=== PATIENT | male | born 1945 | race Caucasian/White ===

== ENCOUNTER 2024-02-26 08:33 | Inpatient (IN) | payer MEDICARE, SELFPAY ==
[2024-02-26] VITALS (46 sets, daily range): BP systolic 99–175; BP diastolic 56–104; PULSE 75–169; RESP 26–45; TEMP 36.2–36.7; O2SAT 91–98; BMI 27.0
--- NOTE | 2024-02-26 08:42 | EKG_ITS ---
[id number] [address] Test Date: 2024-02-26 Pat Name: Bong Sam Department: Room: Gender: Male Staff Psychiatrist: JATINDER : 1945 Requested By: Order Number: [id number] Reading MD: Byron Burris Measurements Intervals [place] Rate: 146 P: MA: QRS: 15 QRSD: 82 T: -5 QT: 260 QTc: 405 Interpretive Statements Critical Test Result: High HR Atrial fibrillation with rapid ventricular response with premature ventricular or aberrantly conducted complexes Nonspecific ST abnormality Electronically Signed On 02-26-2024 18:36:41 PST by Byron Burris
--- NOTE | 2024-02-26 08:43 | DI.RAD.S_ITS ---
PROCEDURE: XR CHEST 1V INDICATIONS: Shortness of breath TECHNIQUE: One view of the chest was acquired. COMPARISON: None. FINDINGS: Surgical changes and devices: None. Lungs and pleura: Increased bronchovascular markings in bilateral hilar region are seen with bronchial wall cuffing. No focal infiltrate. No pleural effusions or pneumothorax. Mediastinum: Mediastinal contours appear normal. Heart size is enlarged. Bones and chest wall: No suspicious bony lesions. Overlying soft tissues appear unremarkable. IMPRESSION: Suggestion of reactive airway disease such as bronchitis or viral illness. No focal infiltrate, pleural effusion or pneumothorax. Dictated by: Parker Velazco M.D. on 02/26/2024 at 8:55 Approved by: Parker Velazco M.D. on 02/26/2024 at 8:58
[2024-02-26 08:56] LABS: Add Manual Diff / Slide Review NO; Basophils Absolute Auto 100 /uL (0-100); Basophils Percent Auto 0.6 % (0-2); Eosinophils Absolute Auto 300 /uL (0-450); Eosinophils Percent Auto 2.8 % (2-4); Hematocrit 43.4 % (41-53); Hemoglobin 14.5 g/dL (13.5-17.5); Lymphocytes Absolute Auto 1900 /uL (1100-4500); Lymphocytes Percent Auto 20.5 % (25-40); Mean Corpuscular HGB Conc 33.4 % (30-36); Mean Corpuscular Hemoglobin 32.5 PG (26-34); Mean Corpuscular Volume 97.5 fL (80-100); Monocytes Absolute Auto 1100 /uL (0-900); Monocytes Percent Auto 11.9 % (3-14); Neutrophils Absolute Auto 6000 /uL (1500-7000); Neutrophils Percent Auto 64.2 % (50-75); Platelet Count 249 X10^3/uL (150-400); Red Blood Cell Count 4.45 X10^6/uL (4.5-5.9); Red Cell Distribution Width 14.9 % (11.6-14.8); White Blood Cell Count 9.4 X10^3/uL (4.5-11.0)
--- NOTE | 2024-02-26 08:59 | ED_ITS ---
HPI - General Adult General Chief complaint: Shortness of Breath/Dyspnea Stated complaint: diff breathing, sob, diarrhea t-6mo Time Seen by Provider: 02/26/24 08:47 Source: patient Mode of arrival: Ambulatory History of Present Illness HPI narrative: Patient is an 79-year-old male. History of atrial fibrillation. Did not take his medications this morning. He states that overnight he got up to use the restroom and stated that it took him several minutes in order to catch his breath. This happened a couple times over the night. He has been having diarrhea for the past 6 months and gets up multiple times during the night because of this. No fevers. No chest pain. It does not feel palpitations. Denies any cough. No history of COPD/asthma. Is not on home oxygen. Has not tried anything for his symptoms prior to arrival. Related Data Allergies Allergy/AdvReac Type Severity Reaction Status Date / Time No Known Drug Allergies Allergy Verified 02/26/24 08:43 Review of Systems Review of Systems ROS Unobtainable: All systems reviewed & are unremarkable except as noted in HPI and below Patient History Social History Smoking Status: Unknown if ever smoked Smoking Status: Unknown if ever smoked Exam Initial Vital Signs Initial Vital Signs: Vital Signs Temperature 97.2 F L 02/26/24 08:37 Pulse Rate 103 H 02/26/24 08:37 Respiratory Rate 27 H 02/26/24 08:37 Blood Pressure 174/104 H 02/26/24 08:37 Pulse Oximetry 94 02/26/24 08:37 Oxygen Delivery Method Room Air 02/26/24 08:37 Const General: cooperative and No ill appearing [facility] Head: normal to inspection and normocephalic Resp Effort & Inspection: no cough, not labored, no respiratory distress and tachypneic Auscultation: clear to auscultation bilaterally, no rales, no rhonchi and no wheezes Cardio Rate: tachycardic Rhythm: abnormal rhythm Skin General: no rashes or lesions noted Neuro General: patient alert and patient awake Extrem General: No edema Course Orders Ordered: ED Orders 02/26/24 08:42 Complete Blood Count AUTO DIFF Stat Comprehensive Metabolic Panel Stat Lactate (Lactic Acid) Stat NT-proBNP (BNP-Adult 18+) Stat Prothrombin Time INR Stat Troponin I Stat 02/26/24 08:43 XR chest 1V Stat EKG-12 Lead Stat RT Consult Eval and Treat NOW 02/26/24 09:24 Covid-19 + FLU A/B + RSV - PCR Stat Diltiazem HCl 125 mg/ Sodium (Chloride) 125 mls @ 5 mls/hr IV TITRATE NELLY; Protocol Last Titration: 02/26/24 10:26 Dose: 10 mg/hr, 10 mls/hr Documented By: LUIS ANTONIO Admin: 02/26/24 10:07 Dose: 5 mg/hr, 5 mls/hr Documented By: LUIS ANTONIO Discontinued Medications Diltiazem HCl (Diltiazem 25 Mg/5 Ml Sdv) 10 mg IV NOW ONE Stop: 02/26/24 09:14 Last Admin: 02/26/24 09:23 Dose: 10 mg Documented By: LUIS ANTONIO Furosemide 60 mg/ Sodium (Chloride) 56 mls @ 112 mls/hr IV NOW ONE Stop: 02/26/24 09:10 Last Infusion: 02/26/24 10:00 Dose: Infused Documented By: LUIS ANTONIO Admin: 02/26/24 09:21 Dose: 112 mls/hr Documented By: LUIS ANTONIO Oseltamivir Phosphate (Oseltamivir 75 Mg Capsule) 75 mg PO NOW ONE Stop: 02/26/24 10:19 Last Admin: 02/26/24 10:26 Dose: 75 mg Documented By: LUIS ANTONIO Vital Signs Vital signs: Vital Signs - 8 hr 02/26/24 08:37 02/26/24 08:40 02/26/24 08:40 Temperature 97.2 F L Pulse Rate 103 H 133 H Respiratory Rate 27 H Blood Pressure 174/104 H 175/104 H Pulse Oximetry 94 93 Oxygen Delivery Method Room Air 02/26/24 09:23 02/26/24 10:07 Temperature Pulse Rate 155 H 133 H Respiratory Rate Blood Pressure 175/104 H 135/59 L Pulse Oximetry Oxygen Delivery Method Medical Decision Making Lab Data 02/26/24 08:42 02/26/24 08:42 Labs: Lab Results 02/26/24 02/26/24 Range/Units 08:42 09:24 WBC 9.4 (4.5-11.0) X10^3/uL RBC 4.45 L (4.5-5.9) X10^6/uL Hgb 14.5 (13.5-17.5) g/dL Hct 43.4 (41-53) % MCV 97.5 (80-100) fL MCH 32.5 (26-34) PG MCHC 33.4 (30-36) % RDW 14.9 H (11.6-14.8) % Plt Count 249 (150-400) X10^3/uL Neut % (Auto) 64.2 (50-75) % Lymph % (Auto) 20.5 L (25-40) % [place] % (Auto) 11.9 (3-14) % Eos % (Auto) 2.8 (2-4) % Baso % (Auto) 0.6 (0-2) % Neut # (Auto) 6000 (3361-7295) /uL Lymph # (Auto) 1900 (7324-3142) /uL [place] # (Auto) 1100 H (0-900) /uL Eos # (Auto) 300 (0-450) /uL Baso # (Auto) 100 (0-100) /uL PT 15.9 H (9.4-12.5) SECONDS INR 1.4 H (0.9-1.3) Sodium 141 (137-145) mmol/L Potassium 5.3 H (3.4-5.1) mmol/L Chloride 110 H (98-107) mmol/L Carbon Dioxide 19 L (22-32) mmol/L BUN 20 (9-20) mg/dL Creatinine 1.73 H (0.66-1.25) mg/dL Estimated GFR 39 L (>60) mL/min BUN/Creatinine Ratio 11.6 (6-22) Glucose 111 H (80-110) mg/dL Lactate 1.6 (0.7-2.1) mmol/L Calcium 9.1 (8.4-10.2) mg/dL Total Bilirubin 1.1 (0.2-1.3) mg/dL AST 64 H (17-59) IU/L ALT 33 (<50) IU/L Alkaline Phosphatase 41 (38-126) U/L Troponin I 0.016 (0.01-0.034) ng/mL NT-Pro-B Natriuret Pep 6330 H (<450) pg/mL Total Protein 8.7 H (6.3-8.2) g/dL Albumin 4.7 (3.5-5.0) g/dL Globulin 4.0 (1.7-4.1) g/dL Albumin/Globulin Ratio 1.2 (1.0-2.8) SARS-CoV-2 (PCR) Negative (Negative) Influenza A (RT-PCR) Flu a positive H (NEGATIVE) Influenza B (RT-PCR) Flu b negative (NEGATIVE) RSV (PCR) Negative (Negative) Imaging Data Chest x-ray: Radiologist's Impression: PROCEDURE: XR CHEST 1V INDICATIONS: Shortness of breath TECHNIQUE: One view of the chest was acquired. COMPARISON: None. FINDINGS: Surgical changes and devices: None. Lungs and pleura: Increased bronchovascular markings in bilateral hilar region are seen with bronchial wall cuffing. No focal infiltrate. No pleural effusions or pneumothorax. Mediastinum: Mediastinal contours appear normal. Heart size is enlarged. Bones and chest wall: No suspicious bony lesions. Overlying soft tissues appear unremarkable. IMPRESSION: Suggestion of reactive airway disease such as bronchitis or viral illness. No focal infiltrate, pleural effusion or pneumothorax. ECG Data Attestation: I personally reviewed and interpreted this ECG as follows: Interpretation: Atrial fibrillation Ventricular rate of 146 Normal axis Normal QRS Nonspecific ST T wave changes MDM Narrative Medical decision making narrative: Patient arrived AFib with RVR. He was has no chest pain. Had shortness of breath last evening. No fevers. His BNP is elevated. He was not taking his tamsulosin in the past 7-10 days. He was given Lasix here in the ER. He did diurese approximately 1 L. was started on diltiazem. His blood pressure and heart rate did improve. He states he takes Eliquis although I am unsure as to how compliant he was with his medications. He was also influenza A positive. Was given Tamiflu. Given his AFib, shortness of breath, fluid overload I do feel that he would benefit from admission to the hospital. Discussed the case with Dr. Burris hospitalist on-call who will admit. Discussed the need for admission with the patient who expressed understanding agreement as well. Discharge Plan Departure Patient Disposition: Admitted As Inpatient Clinical Impression: Atrial fibrillation with RVR, Influenza A, Congestive heart failure
--- NOTE | 2024-02-26 09:01 | PC.NURSE ---
Pt reports daughter has been sick and pt reports he now has what his daughter has. Pt reports taking cold medicine for 1-2 weeks. Reports he felt worse the past x4 days. States when he was walking to the bathroom when he became short of breath last night. States the SOB has been going on since then. Wheezing heard in upper lobes?. Respiratory consulted. Fine crackles heard in lower lobes
[2024-02-26 09:07] LABS: Alanine Aminotransferase 33 IU/L (<50); Albumin 4.7 g/dL (3.5-5.0); Albumin Globulin Ratio 1.2 (1.0-2.8); Alkaline Phosphatase 41 U/L (38-126); Aspartate Aminotransferase 64 IU/L (17-59); BUN Creatinine Ratio 11.6 (6-22); Bilirubin Total 1.1 mg/dL (0.2-1.3); Blood Urea Nitrogen 20 mg/dL (9-20); Calcium 9.1 mg/dL (8.4-10.2); Carbon Dioxide 19 mmol/L (22-32); Chloride 110 mmol/L (98-107); Estimated Glomerular Filt Rate 39 mL/min (>60); Glucose 111 mg/dL (80-110); HEMOLYSIS 185 (0-50); Lactate (Lactic Acid) 1.6 mmol/L (0.7-2.1); Sodium 141 mmol/L (137-145); Total Protein 8.7 g/dL (6.3-8.2)
[2024-02-26 09:08] LABS: Potassium 5.3 mmol/L (3.4-5.1)
[2024-02-26 09:10] LABS: INR 1.4 (0.9-1.3); Prothrombin Time 15.9 SECONDS (9.4-12.5)
[2024-02-26 09:19] LABS: NT-proBNP (BNP-Adult 18+) 6330 pg/mL (<450); Troponin I 0.016 ng/mL (0.01-0.034)
[2024-02-26] MEDS: FUROSEMIDE 60 MG in SODIUM CHLORIDE 0.9% 50 ML 112 MG IV (09:21)
[2024-02-26] MEDS: dilTIAZem 25 MG/5 ML SDV 10 MG IV (09:23)
[2024-02-26] MEDS: dilTIAZem 125 MG in SODIUM CHLORIDE 0.9% 100 ML IV ×2 (10:07→22:53)
[2024-02-26 10:11] LABS: COVID-19 CEPHEID 4-PLEX PCR Negative (Negative); Influenza A - CEPHEID Flu A POSITIVE (NEGATIVE); Influenza B - CEPHEID Flu B NEGATIVE (NEGATIVE); Respiratory Syncytial Virus Negative (Negative)
[2024-02-26] MEDS: OSELTAMIVIR 75 MG CAPSULE PO ×2 (10:26→20:58)
--- NOTE | 2024-02-26 10:48 | PM.HP.1 ---
History of Present Illness History of Present Illness Date Patient Seen: 02/26/24 Time Patient Seen: 12:16 Chief complaint: diff breathing, sob, diarrhea t-6mo Narrative: Patient was visiting from [facility]. He was been ill for 2 weeks. Two weeks ago he developed an upper respiratory illness with fevers, and a cough. His symptoms improved and he had had some degree of malaise for the past 10 days. He developed profound weakness and fatigue over the last 2 days. No fevers, chills. He also denies ongoing cough, or dyspnea. No rhinorrhea. He was chronic atrial fibrillation and takes carvedilol for rate control as well as apixaban. He also has prostate cancer with an elevated PSA and is deciding what he will do about this. Stopped toe taking Flomax about 2 weeks ago because of frequent urination. He denies retention symptoms. He was no history of heart failure but does take a diuretic. In the ED he was found to be dyspneic but not hypoxemic and was given Lasix IV. His influenza PCR was positive and he was given Tamiflu as well. He was in atrial fibrillation with rapid response and a diltiazem bolus and drip were started. He would limited chest pressure this morning but denies this is being a feature over the last several weeks. He was no known history of CAD. He was in town visiting his daughter. He was a nonsmoker, lifelong. He drinks about 1-5 beverages a week. [facility] Social History household members: family Smoking Status: Unknown if ever smoked Meds Home Medications and Allergies Home Medications Medication Instructions Recorded Confirmed Type Eliquis 5 mg PO DAILY 02/26/24 02/26/24 History allopurinol 100 mg PO DAILY 02/26/24 02/26/24 History carvedilol 12.5 mg tablet 12.5 mg PO DAILY 02/26/24 02/26/24 History ondansetron 8 mg disintegrating 8 mg PO Q12H PRN Nausea And 02/26/24 02/26/24 History tablet Vomiting torsemide 10 mg tablet 10 mg PO DAILY 02/26/24 02/26/24 History Allergies Allergy/AdvReac Type Severity Reaction Status Date / Time No Known Drug Allergies Allergy Verified 02/26/24 08:43 Review of Systems Review of Systems Narrative: All else reviewed and otherwise unremarkable except as noted in the history and physical. Exam Vital Signs (past 8 hours): - 02/26/24 08:37 02/26/24 08:40 02/26/24 08:40 Temperature 97.2 F L Pulse Rate 103 H 133 H Respiratory Rate 27 H Blood Pressure 174/104 H 175/104 H Pulse Oximetry 94 93 Oxygen Delivery Method Room Air 02/26/24 09:11 02/26/24 09:23 02/26/24 09:28 Temperature Pulse Rate 169 H 155 H Respiratory Rate Blood Pressure 175/104 H 147/88 H Pulse Oximetry 95 Oxygen Delivery Method 02/26/24 09:28 02/26/24 09:30 02/26/24 09:30 Temperature Pulse Rate 130 H 112 H Respiratory Rate 37 H Blood Pressure 128/69 Pulse Oximetry 92 91 Oxygen Delivery Method 02/26/24 09:40 02/26/24 09:40 02/26/24 09:50 Temperature Pulse Rate 116 H 130 H Respiratory Rate 36 H 36 H Blood Pressure 136/71 Pulse Oximetry 91 94 Oxygen Delivery Method 02/26/24 09:50 02/26/24 10:00 02/26/24 10:01 Temperature Pulse Rate 154 H 147 H Respiratory Rate 39 H 35 H Blood Pressure 154/77 H Pulse Oximetry 92 Oxygen Delivery Method 02/26/24 10:01 02/26/24 10:07 02/26/24 10:10 Temperature Pulse Rate 133 H 121 H Respiratory Rate 39 H Blood Pressure 135/59 L 135/59 L Pulse Oximetry 92 Oxygen Delivery Method 02/26/24 10:10 02/26/24 10:15 02/26/24 10:15 Temperature Pulse Rate 133 H Respiratory Rate 37 H Blood Pressure 141/71 H 155/68 H Pulse Oximetry 93 Oxygen Delivery Method 02/26/24 10:21 02/26/24 10:21 02/26/24 10:25 Temperature Pulse Rate 151 H Respiratory Rate 40 H Blood Pressure 139/61 129/69 Pulse Oximetry 93 Oxygen Delivery Method 02/26/24 10:25 02/26/24 10:30 02/26/24 10:30 Temperature Pulse Rate 128 H 124 H Respiratory Rate 36 H 34 H Blood Pressure 130/72 Pulse Oximetry 95 95 Oxygen Delivery Method 02/26/24 10:35 02/26/24 10:35 Temperature Pulse Rate 142 H Respiratory Rate 30 H Blood Pressure 124/76 Pulse Oximetry 95 Oxygen Delivery Method Oxygen Delivery Method Room Air Narrative Exam Narrative: NAD, alert and oriented, fluent speech, calm. Normocephalic skull, EOMI, anicteric sclera, symmetric pupils. Oropharynx unremarkable, no droop. Neck supple, midline trachea, no adenopathy. Lungs are globally diminished with some expiratory wheezing in scattered areas, normal rate and effort. Heart irregular, no murmur gallop or rub. He was tachycardic. Abdomen is soft, non distended and non tender. Extremities are free of edema. Skin is free of rash or lesions. Joints are not swollen or deformed. Judgment appears to be normal. Objective Imaging Chest x-ray: Radiologist's impression: [address] [address] XRay Report Signed Patient: Bong Sam MR#: [id number] : 1945 Acct:[id number] Age/Sex: 79 / M Date of Service: 02/26/24 Loc: ED Accession Number: [id number] Procedure: XR chest 1V Ordering Provider: Jelani Blanco D.O. PROCEDURE: XR CHEST 1V INDICATIONS: Shortness of breath TECHNIQUE: One view of the chest was acquired. COMPARISON: None. FINDINGS: Surgical changes and devices: None. Lungs and pleura: Increased bronchovascular markings in bilateral hilar region are seen with bronchial wall cuffing. No focal infiltrate. No pleural effusions or pneumothorax. Mediastinum: Mediastinal contours appear normal. Heart size is enlarged. Bones and chest wall: No suspicious bony lesions. Overlying soft tissues appear unremarkable. IMPRESSION: Suggestion of reactive airway disease such as bronchitis or viral illness. No focal infiltrate, pleural effusion or pneumothorax. Labs 02/26/24 08:42 02/26/24 08:42 Labs: Laboratory Results - last 24 hr 02/26/24 02/26/24 08:42 09:24 WBC 9.4 RBC 4.45 L Hgb 14.5 Hct 43.4 MCV 97.5 MCH 32.5 MCHC 33.4 RDW 14.9 H Plt Count 249 Neut % (Auto) 64.2 Lymph % (Auto) 20.5 L [place] % (Auto) 11.9 Eos % (Auto) 2.8 Baso % (Auto) 0.6 Neut # (Auto) 6000 Lymph # (Auto) 1900 [place] # (Auto) 1100 H Eos # (Auto) 300 Baso # (Auto) 100 PT 15.9 H INR 1.4 H Sodium 141 Potassium 5.3 H Chloride 110 H Carbon Dioxide 19 L BUN 20 Creatinine 1.73 H Estimated GFR 39 L BUN/Creatinine Ratio 11.6 Glucose 111 H Lactate 1.6 Calcium 9.1 Total Bilirubin 1.1 AST 64 H ALT 33 Alkaline Phosphatase 41 Troponin I 0.016 NT-Pro-B Natriuret Pep 6330 H Total Protein 8.7 H Albumin 4.7 Globulin 4.0 Albumin/Globulin Ratio 1.2 SARS-CoV-2 (PCR) Negative Influenza A (RT-PCR) Flu a positive H Influenza B (RT-PCR) Flu b negative RSV (PCR) Negative Assessment & Plan Assessment & Plan narrative: 1. Influenza, present on admission and active. 2. Dyspnea, likely related to influenza and possible acute diastolic heart failure, present on admission and active. 3. Probable acute diastolic heart failure, present on admission and active. 4. Atrial fibrillation with rapid response and history of chronic persistent atrial fibrillation. Present on admission and active. 5. BPH with recent stopping of Flomax. Present on admission and active. 6. Prostate cancer with no therapy to date. Present on admission and active. Plan: Diltiazem drip for rate control, restart carvedilol. Restart apixaban Continue Tamiflu b.i.d. for 5 days Influenza precautions Was given 1 dose of Lasix, we will monitor his response. Echo tomorrow, February 26. Full resuscitation, confirmed time of admit admission. Proxy decision maker is daughter. HAROON is February 26. Time-Based Coding :: 35 min spent with patient and on the chart (including review of chart, obtaining history, exam, reviewing outside data, placing orders, documenting exam and treatment plan, and counseling patient) on 02/25. Quality MIPS - Admit I confirm the patient?s Advance Care Plan is present, Code status is documented, Surrogate decision maker is in patient?s record [If Yes, STOP here]: Yes MIPS - Meds 'Current medications' to include all prescriptions, [id number] products, herbals, cannabis/cannabidiol products, and vitamin/mineral/dietary (nutritional) supplements. I have utilized all available resources to obtain, update, or review the patient?s current medications. [If Yes, STOP here]: Yes
[2024-02-26 11:32] LABS: Troponin I 0.058 ng/mL (0.01-0.034)
[2024-02-26] MEDS: ACETAMINOPHEN 325 MG TABLET 650 MG PO (11:58)
[2024-02-26 12:44] LABS: MRSA (Nasal) PCR NOT DETECTED (Not Detect)
--- NOTE | 2024-02-26 18:48 | PC.NURSE ---
rec'd pt from ED at 1050 w/ daughter at bedside; pt on droplet precautions for influenza A; he is on diltiazem at 10mg/hr and is a-fib 130s; increased to 15mg/hr; currently HR 80s and diltiazem was decreased and is now currently at 5mg/hr; he was given tylenol earlier for c/o headache and is now pain free; pt is ambulatory in the room and his HR is now remaining under 100bpm with movement
--- NOTE | 2024-02-26 19:38 | PC.NURSE ---
Patient Troponin 0.144, BP 116/71, HR 75, Respiration 20, SpO2 98% on room air, 12 lead EKG showing controlled A-fib at 74 BPM, denies c/o chest pain, SOB. Hospitalist quality compliance consultant updated.
[2024-02-26 19:39] LABS: Troponin I 0.144 ng/mL (0.01-0.034)
--- NOTE | 2024-02-26 19:56 | EKG_ITS ---
[address] [address] [address], [place] [address] Test Date: 2024-02-26 Pat Name: Bong Sam Department: Room: 228 Gender: Male Emission Specialist: ADAMS : 1945 Requested By: Order Number: [id number] Reading MD: Byron Burris Measurements Intervals [place] Rate: 74 P: SD: QRS: 10 QRSD: 92 T: 24 QT: 418 QTc: 463 Interpretive Statements Atrial fibrillation Electronically Signed On 02-27-2024 8:17:52 PST by Byron Burris
[2024-02-26] MEDS: APIXABAN 5 MG TABLET 2.5 MG PO (20:58)
[2024-02-27] VITALS (11 sets, daily range): BP systolic 121–153; BP diastolic 71–90; PULSE 82–104; RESP 15–20; TEMP 36.8
[2024-02-27 06:03] LABS: Add Manual Diff / Slide Review NO; Basophils Absolute Auto 0 /uL (0-100); Basophils Percent Auto 0.6 % (0-2); Eosinophils Absolute Auto 100 /uL (0-450); Eosinophils Percent Auto 1.6 % (2-4); Hematocrit 41.5 % (41-53); Hemoglobin 13.7 g/dL (13.5-17.5); Lymphocytes Absolute Auto 2000 /uL (1100-4500); Lymphocytes Percent Auto 30.9 % (25-40); Mean Corpuscular Hemoglobin 32.1 PG (26-34); Mean Corpuscular Volume 97.1 fL (80-100); Monocytes Absolute Auto 1100 /uL (0-900); Monocytes Percent Auto 16.7 % (3-14); Neutrophils Absolute Auto 3200 /uL (1500-7000); Neutrophils Percent Auto 50.2 % (50-75); Platelet Count 197 X10^3/uL (150-400); Red Blood Cell Count 4.28 X10^6/uL (4.5-5.9); Red Cell Distribution Width 14.7 % (11.6-14.8); White Blood Cell Count 6.4 X10^3/uL (4.5-11.0)
[2024-02-27 06:19] LABS: Blood Urea Nitrogen 24 mg/dL (9-20); Calcium 8.7 mg/dL (8.4-10.2); Carbon Dioxide 20 mmol/L (22-32); Chloride 108 mmol/L (98-107); Estimated Glomerular Filt Rate 43 mL/min (>60); Glucose 81 mg/dL (80-110); HEMOLYSIS < 15 (0-50); Potassium 3.2 mmol/L (3.4-5.1); Sodium 140 mmol/L (137-145)
[2024-02-27 07:03] LABS: Troponin I 0.081 ng/mL (0.01-0.034)
--- NOTE | 2024-02-27 07:56 | PM.PN.1 ---
Subjective Subjective Interval history: Summary: Patient was visiting from [facility]. He was been ill for 2 weeks. Two weeks ago he developed an upper respiratory illness with fevers, and a cough. His symptoms improved and he had had some degree of malaise for the past 10 days. He developed profound weakness and fatigue over the last 2 days. No fevers, chills. He also denies ongoing cough, or dyspnea. No rhinorrhea. He was chronic atrial fibrillation and takes carvedilol for rate control as well as apixaban. He also has prostate cancer with an elevated PSA and is deciding what he will do about this. Stopped toe taking Flomax about 2 weeks ago because of frequent urination. He denies retention symptoms. He was no history of heart failure but does take a diuretic. In the ED he was found to be dyspneic but not hypoxemic and was given Lasix IV. His influenza PCR was positive and he was given Tamiflu as well. He was in atrial fibrillation with rapid response and a diltiazem bolus and drip were started. He would limited chest pressure this morning but denies this is being a feature over the last several weeks. He was no known history of CAD. He was in town visiting his daughter. He was a nonsmoker, lifelong. He drinks about 1-5 beverages a week. S: Exam Vital Signs (past 8 hours): - 02/27/24 00:00 02/27/24 01:00 02/27/24 02:00 Temperature Pulse Rate 83 87 Respiratory Rate Blood Pressure 121/74 125/83 146/80 H 02/27/24 03:00 02/27/24 04:00 02/27/24 05:00 Temperature Pulse Rate 83 Respiratory Rate 15 Blood Pressure 139/71 145/87 H 132/80 02/27/24 05:00 02/27/24 06:00 02/27/24 06:00 Temperature 98.2 F Pulse Rate 82 Respiratory Rate 20 Blood Pressure 141/90 H 02/27/24 07:00 Temperature Pulse Rate Respiratory Rate Blood Pressure 144/88 H Oxygen Delivery Method Room Air Oxygen Flow Rate 0 Narrative Exam Narrative: NAD, alert and oriented. Fluent speech. Lungs are clear, normal rate and effort. Heart is regular, no murmur gallop or rub. Abdomen is soft, non distended. Extremities are free of edema. Objective Labs 02/27/24 05:10 02/27/24 05:10 Labs: Laboratory Results - last 24 hr 02/26/24 02/26/24 02/26/24 08:42 09:24 11:05 WBC 9.4 RBC 4.45 L Hgb 14.5 Hct 43.4 MCV 97.5 MCH 32.5 MCHC 33.4 RDW 14.9 H Plt Count 249 Neut % (Auto) 64.2 Lymph % (Auto) 20.5 L [place] % (Auto) 11.9 Eos % (Auto) 2.8 Baso % (Auto) 0.6 Neut # (Auto) 6000 Lymph # (Auto) 1900 [place] # (Auto) 1100 H Eos # (Auto) 300 Baso # (Auto) 100 PT 15.9 H INR 1.4 H Sodium 141 Potassium 5.3 H Chloride 110 H Carbon Dioxide 19 L BUN 20 Creatinine 1.73 H Estimated GFR 39 L BUN/Creatinine Ratio 11.6 Glucose 111 H Lactate 1.6 Calcium 9.1 Total Bilirubin 1.1 AST 64 H ALT 33 Alkaline Phosphatase 41 Troponin I 0.016 0.058 H NT-Pro-B Natriuret Pep 6330 H Total Protein 8.7 H Albumin 4.7 Globulin 4.0 Albumin/Globulin Ratio 1.2 Nasal Screen MRSA (PCR) SARS-CoV-2 (PCR) Negative Influenza A (RT-PCR) Flu a positive H Influenza B (RT-PCR) Flu b negative RSV (PCR) Negative 02/26/24 02/26/24 02/27/24 11:10 19:00 05:10 WBC 6.4 RBC 4.28 L Hgb 13.7 Hct 41.5 MCV 97.1 MCH 32.1 MCHC 33.0 RDW 14.7 Plt Count 197 Neut % (Auto) 50.2 Lymph % (Auto) 30.9 [place] % (Auto) 16.7 H Eos % (Auto) 1.6 L Baso % (Auto) 0.6 Neut # (Auto) 3200 Lymph # (Auto) 2000 [place] # (Auto) 1100 H Eos # (Auto) 100 Baso # (Auto) 0 PT INR Sodium 140 Potassium 3.2 L D Chloride 108 H Carbon Dioxide 20 L BUN 24 H Creatinine 1.60 H Estimated GFR 43 L BUN/Creatinine Ratio 15.0 Glucose 81 Lactate Calcium 8.7 Total Bilirubin AST ALT Alkaline Phosphatase Troponin I 0.144 H* 0.081 H NT-Pro-B Natriuret Pep Total Protein Albumin Globulin Albumin/Globulin Ratio Nasal Screen MRSA (PCR) Not detected SARS-CoV-2 (PCR) Influenza A (RT-PCR) Influenza B (RT-PCR) RSV (PCR) [facility] Social History household members: family Smoking Status: Unknown if ever smoked Assessment & Plan Assessment & Plan narrative: 1. Influenza, present on admission and active. 2. Dyspnea, likely related to influenza and possible acute diastolic heart failure, present on admission and active. 3. Probable acute diastolic heart failure, present on admission and active. 4. Atrial fibrillation with rapid response and history of chronic persistent atrial fibrillation. Present on admission and active. 5. BPH with recent stopping of Flomax. Present on admission and active. 6. Prostate cancer with no therapy to date. Present on admission and active. Plan: Diltiazem drip for rate control, restart carvedilol. Restart apixaban Continue Tamiflu b.i.d. for 5 days Influenza precautions Was given 1 dose of Lasix, we will monitor his response. Echo tomorrow, February 26. Full resuscitation, confirmed time of admit admission. Proxy decision maker is daughter. HAROON is February 26. Time-Based Coding :: [TOTAL MINUTES] spent with patient and on the chart (including review of chart, obtaining history, exam, reviewing outside data, placing orders, documenting exam and treatment plan, and counseling patient) on [DATE].
[2024-02-27] MEDS: carvediloL 12.5 MG TABLET PO (08:30)
[2024-02-27] MEDS: POTASSIUM CHLORIDE 20 MEQ TAB 40 MEQ PO (08:30)
[2024-02-27] MEDS: OSELTAMIVIR 75 MG CAPSULE PO (08:30)
[2024-02-27] MEDS: allopurinoL 100 MG TABLET PO (08:30)
[2024-02-27] MEDS: APIXABAN 5 MG TABLET 2.5 MG PO (08:31)
--- NOTE | 2024-02-27 11:17 | PM.DS.1 ---
History of Present Illness History of Present Illness Chief complaint: diff breathing, sob, diarrhea t-6mo Narrative: Patient was visiting from [facility]. He was been ill for 2 weeks. Two weeks ago he developed an upper respiratory illness with fevers, and a cough. His symptoms improved and he had had some degree of malaise for the past 10 days. He developed profound weakness and fatigue over the last 2 days. No fevers, chills. He also denies ongoing cough, or dyspnea. No rhinorrhea. He was chronic atrial fibrillation and takes carvedilol for rate control as well as apixaban. He also has prostate cancer with an elevated PSA and is deciding what he will do about this. Stopped toe taking Flomax about 2 weeks ago because of frequent urination. He denies retention symptoms. He was no history of heart failure but does take a diuretic. In the ED he was found to be dyspneic but not hypoxemic and was given Lasix IV. His influenza PCR was positive and he was given Tamiflu as well. He was in atrial fibrillation with rapid response and a diltiazem bolus and drip were started. He would limited chest pressure this morning but denies this is being a feature over the last several weeks. He was no known history of CAD. He was in town visiting his daughter. He was a nonsmoker, lifelong. He drinks about 1-5 beverages a week. Discharge Providers Provider Date of admission: 02/26/24 10:35 Discharge Date: 02/27/24 Consults: None. Discharge provider: Byron Burris MD Summary Hospital Course Discharge Diagnosis: 1. Influenza, present on admission and improved. 2. Dyspnea, likely related to influenza and possible acute diastolic heart failure, present on admission and improved. 3. Probable acute diastolic heart failure, present on admission and improve. 4. Atrial fibrillation with rapid response and history of chronic persistent atrial fibrillation. Present on admission and improved. 5. BPH with recent stopping of Flomax. Present on admission and active. 6. Prostate cancer with no therapy to date. Present on admission and active. Hospital Course: Patient was admitted with influenza as well as dyspnea and AFib with RVR. He was chronic AFib and is on anticoagulation and Coreg 12.5 b.i.d.. He was rate controlled with diltiazem and started on Tamiflu. He was not hypoxemic. He improved overnight was able to wean off from the diltiazem without difficulty after his Coreg was restarted. On the day of discharge he felt closer to baseline, still had some nasal congestion, minimal cough. He requested discharge home. 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 Status at Discharge Cognitive/behavioral status at discharge: oriented Functional status at discharge: independent ambulation Overall status at discharge: patient is back to baseline Time Spent with Patient Time spent: Greater than 30 minutes Exam Vital Signs (past 8 hours): - 02/27/24 04:00 02/27/24 05:00 02/27/24 05:00 Temperature 98.2 F Pulse Rate 83 Respiratory Rate 15 20 Blood Pressure 145/87 H 132/80 Oxygen Delivery Method 02/27/24 06:00 02/27/24 06:00 02/27/24 07:00 Temperature Pulse Rate 82 Respiratory Rate Blood Pressure 141/90 H 144/88 H Oxygen Delivery Method 02/27/24 07:00 02/27/24 08:00 02/27/24 08:00 Temperature 98.2 F Pulse Rate Respiratory Rate Blood Pressure 153/74 H Oxygen Delivery Method Room Air 02/27/24 09:00 02/27/24 09:00 02/27/24 10:01 Temperature Pulse Rate 104 H Respiratory Rate 18 Blood Pressure 139/71 Oxygen Delivery Method Oxygen Delivery Method Room Air Oxygen Flow Rate 0 Narrative Exam Narrative: NAD, alert and oriented. Fluent speech. Lungs are clear, normal rate and effort. Heart is regular, no murmur gallop or rub. Abdomen is soft, non distended. Extremities are free of edema. Objective Labs 02/27/24 05:10 02/27/24 05:10 Labs: Laboratory Results - last 24 hr 02/26/24 02/26/24 02/26/24 11:05 11:10 19:00 WBC RBC Hgb Hct MCV MCH MCHC RDW Plt Count Neut % (Auto) Lymph % (Auto) [place] % (Auto) Eos % (Auto) Baso % (Auto) Neut # (Auto) Lymph # (Auto) [place] # (Auto) Eos # (Auto) Baso # (Auto) Sodium Potassium Chloride Carbon Dioxide BUN Creatinine Estimated GFR BUN/Creatinine Ratio Glucose Calcium Troponin I 0.058 H 0.144 H* Nasal Screen MRSA (PCR) Not detected 02/27/24 05:10 WBC 6.4 RBC 4.28 L Hgb 13.7 Hct 41.5 MCV 97.1 MCH 32.1 MCHC 33.0 RDW 14.7 Plt Count 197 Neut % (Auto) 50.2 Lymph % (Auto) 30.9 [place] % (Auto) 16.7 H Eos % (Auto) 1.6 L Baso % (Auto) 0.6 Neut # (Auto) 3200 Lymph # (Auto) 2000 [place] # (Auto) 1100 H Eos # (Auto) 100 Baso # (Auto) 0 Sodium 140 Potassium 3.2 L D Chloride 108 H Carbon Dioxide 20 L BUN 24 H Creatinine 1.60 H Estimated GFR 43 L BUN/Creatinine Ratio 15.0 Glucose 81 Calcium 8.7 Troponin I 0.081 H Nasal Screen MRSA (PCR) [facility] Social History household members: family Smoking Status: Unknown if ever smoked Discharge Assessment & Plan Assessment and Plan Assessment: 1. Influenza, present on admission and improved. 2. Dyspnea, likely related to influenza and possible acute diastolic heart failure, present on admission and improved. 3. Probable acute diastolic heart failure, present on admission and improve. 4. Atrial fibrillation with rapid response and history of chronic persistent atrial fibrillation. Present on admission and improved. 5. BPH with recent stopping of Flomax. Present on admission and active. 6. Prostate cancer with no therapy to date. Present on admission and active. Plan of Treatment: Discharge home, complete Tamiflu 5 day course. Continue usual chronic medications. Follow up with the urgent care Discharge Plan Discharge Plan Patient Disposition: Home Provider Discharge Comment: Improved, stable for discharge home. Discharge orders & Medications Prescriptions: New oseltamivir [Tamiflu] 75 mg capsule 75 mg PO BID 4 Days Qty: 8 0RF Continued carvedilol 12.5 mg Tablet 12.5 mg PO DAILY torsemide 10 mg Tablet 10 mg PO DAILY ondansetron 8 mg Tablet,Disintegrating 8 mg PO Q12H PRN (Reason: Nausea And Vomiting) allopurinol 100 mg tablet 100 mg PO DAILY apixaban 5 mg tablet 5 mg PO DAILY Diet/Activity/Treatments Diet: Diet as Tolerated Skin/Wound/Dressing Care Report to your healthcare provider any signs of infection, such as:: chills, fever Visit Report/Discharge Packet Instructions: DI for H1N1 Influenza -- Adult Stand Alone Forms: Patient Portal/API
== END 2024-02-27 14:25 | disposition home or self-care (01) | DRG 308 ==
LOC: ED 10:21 → AC 10:38 → ICU 10:40
PROVIDERS: Internal Medicine; Admitting Provider Hospitalist; Emergency Provider Emergency Medicine; Referring Provider Emergency Medicine; Visit Provider Hospitalist
DX: I48.19 Other persistent atrial fibrillation (principal); I50.31 Acute diastolic (congestive) heart failure; J10.1 Influenza due to other identified influenza virus with other respiratory manifestations; C61 Malignant neoplasm of prostate; N40.1 Benign prostatic hyperplasia with lower urinary tract symptoms; R35.0 Frequency of micturition; Z79.01 Long term (current) use of anticoagulants
CPT/HCPCS: 0241U; 36415; 71045; 80048; 80053; 83605; 83880; 84484; 85025; 85610; 87797; 93005; 96365; 96367; 96376; 99284; J1940

== ENCOUNTER → 2024-06-21 13:17 | Outpatient (CLI) | payer MEDICARE, SELFPAY ==
[2024-02-26 10:40] VITALS: BMI 27.0
[2024-06-21 14:01] LABS: BUN Creatinine Ratio 15.2 (6-22); Blood Urea Nitrogen 26 mg/dL (9-20); Calcium 9.6 mg/dL (8.4-10.2); Carbon Dioxide 23 mmol/L (22-32); Chloride 107 mmol/L (98-107); Estimated Glomerular Filt Rate 40 mL/min (>60); Glucose 124 mg/dL (70-99); HEMOLYSIS < 15 (0-50); Sodium 140 mmol/L (137-145)
[2024-06-21 14:31] LABS: Prostate Specific Antigen 15.8 ng/mL (0.10-4.00)
== END ==
PROVIDERS: Referring Provider Urology; Visit Provider Urology
DX: C61 Malignant neoplasm of prostate (principal)
CPT/HCPCS: 36415; 80048; 84153

== ENCOUNTER → 2024-07-05 09:12 | Outpatient (CLI) | payer MEDICARE, SELFPAY ==
[2024-02-26 10:40] VITALS: BMI 27.0
--- NOTE | 2024-07-05 10:00 | DI.MRI.S_ITS ---
PROCEDURE: MR PELVIC PROSTATE PROTOCOL INDICATIONS: 79 y/o M w/ prostate cancer, please eval. TECHNIQUE: Coronal HASTE, axial T1 FSE with fat saturation, 3-plane nonbreath-hold T2 FSE. After the administration of contrast, dynamic axial, delayed axial and coronal VIBE or 2-D FLASH with fat saturation through the pelvis. Diffusion weighted imaging and ADC was performed. COMPARISON: None. FINDINGS: Image quality: Diffusion weighted and dynamic contrast enhanced images are diagnostic. Prostate: Gland size is 5.6 x 4.9 x 6.1 cm; ellipsoid gland volume is 87 mL. Transitional zone heterogenous nodules are present, either well encapsulated or mostly encapsulated, compatible with PI-RADS 1 or 2 likely BPH nodules. This is the predominant abnormality. Right mid gland peripheral zone 0.6 cm lesion is seen (4/20). DWI score 3. DCE positive. T2 score 3. PI-RADS 4. Right apex anterior transitional zone lesion measures 1.3 x 1.2 x 1.2 cm. T2 score 3. DWI score 4. (25/20) DCE positive. PI-RADS 3. Seminal vesicles are clear. No definite extracapsular disease. Genitourinary system: Trabeculated bladder is usually from chronic obstruction Bowel and peritoneum: No pathologic ascites. No bowel obstruction. Colonic diverticula are seen Nodes and vessels: No aneurysmal artery identified. No pathologic lymph nodes by size criteria. Soft tissues: Small fat containing left inguinal hernia. Bones: No aggressive appearing osseous abnormality. IMPRESSION: PI-RADS 3 and 4 lesions in the right prostate as described above. No definite extracapsular measurable disease or seminal vesicle involvement. The predominant abnormality in the prostate is BPH and overall prostatomegaly. No pelvic lymphadenopathy by size criteria. No aggressive osseous abnormality. Dictated by: Rell Gardner M.D. on 07/05/2024 at 11:42 Approved by: Rell Gardner M.D. on 07/05/2024 at 11:48
== END ==
LOC: MRI 09:14
PROVIDERS: Referring Provider Urology; Visit Provider Urology
DX: C61 Malignant neoplasm of prostate (principal); K40.90 Unilateral inguinal hernia, without obstruction or gangrene, not specified as recurrent; N40.0 Benign prostatic hyperplasia without lower urinary tract symptoms
CPT/HCPCS: 72197; A9579

== ENCOUNTER → 2024-07-30 12:15 | Outpatient (CLI) | payer MEDICARE, SELFPAY ==
[2024-02-26 10:40] VITALS: BMI 27.0
[2024-07-30 13:49] LABS: Clostridium Difficile Tox PCR Negative for C. diff (Negative)
== END ==
PROVIDERS: PCP Family Medicine; Referring Provider Internal Medicine Gastroenterology; Visit Provider Internal Medicine Gastroenterology
DX: R19.7 Diarrhea, unspecified (principal)
CPT/HCPCS: 87493

== ENCOUNTER → 2024-12-13 09:59 | Outpatient (CLI) | payer MEDICARE, SELFPAY ==
[2024-02-26 10:40] VITALS: BMI 27.0
[2024-12-13 11:20] LABS: Prostate Specific Antigen 17.7 ng/mL (0.10-4.00)
== END ==
PROVIDERS: PCP Family Medicine; Referring Provider Family Medicine; Visit Provider Urology
DX: R97.20 Elevated prostate specific antigen [PSA] (principal)
CPT/HCPCS: 36415; 84153

== ENCOUNTER → 2024-12-27 10:50 | Outpatient (CLI) | payer MEDICARE, SELFPAY ==
[2024-02-26 10:40] VITALS: BMI 27.0
[2024-12-27 12:48] LABS: Blood Urea Nitrogen 32 mg/dL (9-20); Calcium 9.7 mg/dL (8.4-10.2); Carbon Dioxide 24 mmol/L (22-32); Chloride 106 mmol/L (98-107); Estimated Glomerular Filt Rate 41 mL/min (>60); Glucose 88 mg/dL (70-99); HEMOLYSIS < 15 (0-50); Potassium 4.9 mmol/L (3.4-5.1); Sodium 139 mmol/L (137-145)
== END ==
PROVIDERS: PCP Family Medicine; Referring Provider Nurse Practitioner; Visit Provider Nurse Practitioner
DX: I50.22 Chronic systolic (congestive) heart failure (principal)
CPT/HCPCS: 36415; 80048

== ENCOUNTER → 2025-01-13 14:55 | Outpatient (CLI) | payer MEDICARE, SELFPAY ==
[2024-02-26 10:40] VITALS: BMI 27.0
--- NOTE | 2025-01-13 14:56 | DI.ECHO.S_ITS ---
[facility] : : [address] : : [place] : : [id number] : : Phone: [phone] Echocardiogram Report + + :Name: JUNE SEBASTIAN Study Date: 01/13/2025 Height: 69 in : :[facility] ReadingLocation: Weight: 185 lb : : Gender: Male BSA: 2.0 m2 : :: 1945 Age: 79 yrs BP: 133/80 mmHg: :Reason For Study: Chronic systolic heart failure : :Ordering Physician: Lorenzo Pereira : :POOL HALL INSPECTOR Performed By: Antoine Cooper : :Referring: Lorenzo Pereira POOL HALL INSPECTOR : + + Interpretation Summary The patient was in atrial fibrillation with heart rates between 80-104 bpm during the exam. Left ventricular wall thickness is mild-moderately increased. The ejection fraction is estimated to be 50-55%. The right ventricle is mildly dilated. The right ventricular systolic function is normal. There is severe biatrial enlargement. There is mild tricuspid regurgitation. Pulmonary artery pressures cannot be estimated because of the lack of a measurable TR jet velocity. Procedure: A two-dimensional transthoracic echocardiogram with color flow and Doppler was performed. The study quality was technically adequate. The patient had an echocardiogram, but there is no comparison study available. The patient was in atrial fibrillation with heart rates between 80-104 bpm during the exam. Left Ventricle: The left ventricle is normal in size. Left ventricular wall thickness is mild-moderately increased. Beat to beat variability in left ventricular contraction due to arrhythmia. The ejection fraction is estimated to be 50-55%. Diastolic function is indeterminate. Right Ventricle: The right ventricle is mildly dilated. The right ventricular systolic function is normal. Atria: There is severe biatrial enlargement. There is no Doppler evidence for an interatrial shunt. Mitral Valve: The mitral valve leaflets appear to open well. There is no mitral valve stenosis. There is mild mitral regurgitation. The mitral regurgitant jet is eccentrically directed. Aortic Valve: The aortic valve is trileaflet. The aortic valve opens well. There is no aortic valve stenosis. There is trace aortic regurgitation. Tricuspid Valve: The tricuspid valve is not well visualized, but is grossly normal. There is mild tricuspid regurgitation. Pulmonary artery pressures cannot be estimated because of the lack of a measurable TR jet velocity. Pulmonic Valve: The pulmonic valve is not well seen, but is grossly normal. There is trace pulmonic regurgitation. Great Vessels: The aortic root is normal size. The ascending aorta is normal in size. The aortic arch could not be visualized. The pulmonary is not well visualized. The inferior vena cava was not visualized. Pericardium/ Pleura There is no pericardial effusion. MMode/2D Measurements & Calculations LVIDd: 5.1 cm LVOT diam: 2.4 cm LVIDs: 3.1 cm Ao root diam: 3.4 cm FS: 39.3 % asc Aorta Diam: 3.4 cm IVSd: 1.4 cm LVPWd: 1.4 cm LV banks. diameter/BSA (cm/m^2): 2.5 LV sys. diameter/BSA (cm/m^2): 1.5 LA A2 area: 39.8 cm2 RA long axis: 7.7 cm LA A4 area: 40.1 cm2 RA area: 24.4 cm2 LA length (vol): 8.9 cm RA vol: 66.0 ml LA vol: 153.0 ml RA : 33.0 ml/m2 LA vol index: 76.6 ml/m2 RVD1 (basal): 4.5 cm RVD2 (mid): 3.6 cm TAPSE: 1.7 cm Doppler Measurements & Calculations Ao V2 max: 103.4 cm/sec LVOT Max Piyush: 79.6 cm/sec Ao V2 mean: 68.6 cm/sec LV V1 max P.5 mmHg Ao max P.3 mmHg LV V1 VTI: 13.4 cm Ao mean P.1 mmHg CORTEZ(I,D): 3.4 cm2 Ao V2 VTI: 17.4 cm CORTEZ(V,D): 3.4 cm2 sev ratio: 0.77 CORTEZ indexed to BSA (cm^2/m^2): 1.7 AI P1/2t: 639.6 msec AI dec slope: 193.5 cm/sec2 MV E max piyush: 61.2 cm/sec TR max piyush: 257.7 cm/sec MV A max piyush: 31.0 cm/sec TR max P.6 mmHg MV E/A: 2.0 PA V2 max: 64.1 cm/sec Med Peak E' Piyush: 7.7 cm/sec PA V2 mean: 45.1 cm/sec E/E' med: 7.9 PA mean P.90 mmHg Lat Peak E' Piyush: 13.9 cm/sec PA pr(Accel): 30.2 mmHg E/E' lat: 4.4 E/e' average: 6.2 MV dec time: 0.14 sec SV(LVOT): 59.5 ml Qp/Qs (V,Ao): 1.0/3.9 Qp/Qs (V,LVOT): 1.0/1.5 Reading Physician:07:15 PM
== END ==
PROVIDERS: PCP Family Medicine; Referring Provider Nurse Practitioner; Visit Provider Nurse Practitioner
DX: I08.1 Rheumatic disorders of both mitral and tricuspid valves (principal); I50.22 Chronic systolic (congestive) heart failure
CPT/HCPCS: 93306